=== PATIENT | male | born 2005 | race Caucasian/White ===

== ENCOUNTER 2025-03-17 16:59 | Emergency (ER) | payer OTHER, SELFPAY ==
[2025-03-17 17:26] VITALS: BP 127/77; PULSE 69; RESP 16; TEMP 36.4; O2SAT 98
[2025-03-17 17:49] LABS: EDSTREPNEGPOS1 Negative (Negative)
--- NOTE | 2025-03-17 17:55 | ED_ITS ---
HPI - URI/Sore Throat General Chief Complaint: Upper Respiratory Infection Stated Complaint: SORE THROAT/SOB Time Seen by Provider: 03/17/25 17:50 Source: patient and RN notes reviewed Mode of arrival: ambulatory Limitations: no limitations History of Present Illness HPI Narrative: 20-year-old male presents Express Care complaining of upper respiratory symptoms for approximately 6 days. Reports that symptoms are as a sore throat and dry cough. Patient diary was feeling better earlier this week and today he woke up with sudden worsening symptoms of a sore throat, worsening congestion and, having yellow nasal discharge. Patient denies any fevers, body aches, chills, ear pain, nausea, vomiting, diarrhea. Patient denies any significant past medical history. Related Data Allergies Allergy/AdvReac Type Severity Reaction Status Date / Time No Known Allergies Allergy Verified 03/17/25 17:58 Review of Systems Review of Systems: CONSTITUTIONAL: Denies fever, chills, or sweats. EYES: Denies visual changes, redness, or discharge. ENT: Denies rhinorrhea, or otalgia. Positive for congestion sore throat. CARDIOVASCULAR: Denies chest pain, palpitations, or edema. RESPIRATORY: Positive for cough. Negative for dyspnea. GASTROINTESTINAL: Denies abdominal pain, nausea, vomiting, or diarrhea. GENITOURINARY: Denies dysuria or hematuria. SKIN: Denies rash or itching. MUSCULOSKELETAL: Denies back pain, joint pain, or myalgia. NEUROLOGIC: Denies headache, numbness, or weakness. PSYCHIATRIC: Denies anxiety or depression. All other systems reviewed are negative, except as documented in HPI. PMFSH Comments At the time of my signature, I reviewed and agree with the nursing past medical, surgical, social, and family history. There is no relevant family history pertinent to the patient complaint. Exam Narrative: GENERAL: This is a well-nourished, well-developed adult, in no apparent distress. They are non ill-appearing, nontoxic appearing. HEAD: normocephalic, atraumatic. EYES: Sclera clear/white. Conjunctiva normal. Vision is grossly intact. Extraocular movements intact EARS: External ears normal, auditory canals clear and without drainage, TMs normal without perforation. Hearing grossly intact. NOSE: External nose normal with no obvious nasal discharge, nasal turbinates erythematous with yellow thick discharge present. THROAT: Mucous membranes moist, posterior pharynx clear erythematous. Postnasal drip present. Uvula midline. NECK: Neck supple, non-tender without lymphadenopathy, masses or thyromegaly. CARDIOVASCULAR: Regular rate and rhythm without murmurs, gallops, or rubs. RESPIRATORY: Clear to auscultation. Breath sounds equal bilaterally. No wheezes, rales, or rhonchi. SKIN: warm, Dry, intact with no suspicious lesions or rash, good texture and turgor. NEURO: awake, alert, and oriented to person, place and time. There were no obvious focal neurologic abnormalities. EXTREMITIES: No joint tenderness, effusion, or edema noted. BACK: Nontender without deformity. No CVA tenderness. Course Course Emergency Course: Portions of this record may have been created with voice recognition software Level of Care: Express Care Visit Vital Signs Vital signs: Vital Signs Temperature 97.6 F 03/17/25 17:26 Pulse Rate 69 03/17/25 17:26 Respiratory Rate 16 03/17/25 17:26 Blood Pressure 127/77 03/17/25 17:26 Pulse Oximetry 98 03/17/25 17:26 Temperature 97.6 F 03/17/25 17:26 Pulse Rate 69 03/17/25 17:26 Respiratory Rate 16 03/17/25 17:26 Blood Pressure 127/77 03/17/25 17:26 Pulse Oximetry 98 03/17/25 17:26 Oxygen Delivery Room Air 03/17/25 17:40 Reviewed MDM - URI/Sore Throat MDM Narrative Medical decision making narrative: Rapid strep negative. Throat culture pending. Offered patient viral testing he declined. Given the patient's sudden worsening of symptoms it is likely he has developed a bacterial sinusitis. Will treat him empirically with Augmentin. Discussed physical exam findings. Advised supportive measures and signs/symptoms to go to the ER. Pt is appropriate for outpt treatment and f/u. Differential Diagnosis Differential diagnosis: Likely upper respiratory infection, sinusitis, viral infection and pharyngitis Lab Data Attestation: I reviewed the patient's lab results. Labs: Lab Results 03/17/25 Range/Units 17:46 POC Grp A Strep Screen Negative (Negative) Critical Care Time Critical Care Time Critical Care Time: No Discharge Plan Discharge Clinical Impression: Sinusitis Qualifiers: Sinusitis location: unspecified location Chronicity: acute Recurrence: non- recurrent Qualified Code(s): J01.90 - Acute sinusitis, unspecified Patient Disposition: Home Condition: Stable Instructions: Antibiotic Form, Sinusitis (ED) Additional Instructions: Your strep was negative. Throat culture will be sent off an you will be contacted if the strep cultures positive. It is likely you have developed a sinus infection. Take the antibiotics as directed and complete the course even if you start to feel better. You may use a Neti pot saline rinse 3 times a day with warm distilled water. Continue to take Tylenol or Motrin for pain. Use a humidifier or vaporizer at night. Drink plenty of water. 8-10 glasses per day. Use flonase 2 times per day for 5 days then as needed Take mucinex 2 times per day and be sure to take with 8oz of water. Follow up with Primary provider in 3-5 days. He developed difficulty breathing, uncontrollable fevers, worsening symptoms, chest pain, or any other concerns please go to the ER immediately Patient Language: Ukrainian Prescriptions: New amoxicillin-pot clavulanate 875-125 mg tablet 1 tablet PO Q12H 7 Days Qty: 14 0RF Follow-up/Referrals: PHYSICIAN,CARDIOVASCULAR LAB DIRECTOR [Primary Care Provider] - Time of Disposition: 17:59
== END 2025-03-17 18:02 | disposition home or self-care (01) ==
DX: J01.90 Acute sinusitis, unspecified (principal)
CPT/HCPCS: 87081; 87880; 99203; G0463

== ENCOUNTER 2025-05-09 15:33 | Emergency (ER) | payer OTHER, SELFPAY ==
[2025-05-09 15:39] VITALS: BP 139/65; PULSE 82; RESP 18; TEMP 36.6; O2SAT 99
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
== END 2025-05-09 15:55 | disposition home or self-care (01) ==
PROVIDERS: Emergency Provider Nurse Practitioner Family
DX: L55.1 Sunburn of second degree (principal)
CPT/HCPCS: 99211; G0463